=== PATIENT | male | born 1980 | race Caucasian/White ===

== ENCOUNTER → 2020-07-10 15:39 | Outpatient (CLI) | payer OTHER, SELFPAY ==
--- NOTE | 2020-07-10 15:53 | DI.MRI.S_ITS ---
PROCEDURE: MR WRIST LT WO CON INDICATIONS: DISPLACED FRACTURE OF MIDDLE THIRD OF NAVICULAR (S TECHNIQUE: Noncontrast coronal proton density fast spin echo and T2 fast spin echo with fat saturation; coronal 3-D gradient echo, axial T1 spin echo and T2 fast spin echo with fat saturation, sagittal T1 spin echo through the wrist. COMPARISON: [facility] [place], CR, XR WRIST 3+ VIEWS LEFT, 06/25/2020, 11:33. FINDINGS: Image quality: Degraded by motion artifact. Bones and cartilage: There is severe diffuse carpal joint degeneration, with subchondral sclerosis and cystic change. Chronic scaphoid fracture is present. No bridging ossification is seen. There is marrow edema present within the lunate without definite articular surface collapse. The exact etiology is unclear Carpal ligaments: The scapholunate and lunotriquetral ligaments are not well seen given degenerative changes although no definite widening of the scapholunate interval or lunotriquetral interval. In the absence of intra-articular contrast, the extrinsic carpal ligaments are not well identified. On sagittal images, the pisohamate ligament appears intact. Triangular fibrocartilage complex: The triangular fibrocartilage appears intact. The adjacent meniscal homolog appears normal in the absence of intra-articular contrast. The extensor carpi ulnaris tendon is normal in location and morphology. Tendons and soft tissues: The carpal tunnel structures appear normal, including the median nerve. The ulnar nerve appears normal within Guyon's canal. There is mild extensor carpi radialis longus and brevis tenosynovitis No soft tissue ganglion cysts. IMPRESSION: Chronic scaphoid fracture without bridging ossification. Diffuse carpal joint degeneration with subchondral sclerosis and cystic changes. Mild extensor carpi radialis longus and brevis tenosynovitis. Marrow edema within the lunate, however no definite articular surface collapse. This could be reactive to degenerative changes however consider short interval radiographic surveillance to exclude the possibility of early osteonecrosis. Dictated by: Marshal Sal M.D. on 07/10/2020 at 17:02 Approved by: Marshal Sal M.D. on 07/10/2020 at 17:10
== END ==
PROVIDERS: Referring Provider Orthopaedic Surgery; Visit Provider Orthopaedic Surgery
DX: S62.022K Displaced fracture of middle third of navicular [scaphoid] bone of left wrist, subsequent encounter for fracture with nonunion (principal); M65.832 Other synovitis and tenosynovitis, left forearm; M19.032 Primary osteoarthritis, left wrist; X58.XXXD Exposure to other specified factors, subsequent encounter
CPT/HCPCS: 73221

== ENCOUNTER → 2020-10-09 14:14 | Outpatient (CLI) | payer OTHER, SELFPAY ==
--- NOTE | 2020-10-09 14:16 | DI.RAD.S_ITS ---
PROCEDURE: XR LUMBAR SPINE MIN 4V INDICATIONS: sacral pain TECHNIQUE: 5 views of the lumbar spine were acquired, including bilateral oblique views. COMPARISON: None. FINDINGS: Bones: 5 nonrib-bearing vertebrae are present. There is normal bony alignment. No vertebral body compression fractures. No suspicious bony lesions. Soft tissues: Overlying bowel gas pattern is normal. No suspicious soft tissue calcifications. Oblique images: No pars defects. IMPRESSION: Mild degenerative disc height reduction at L5-S1. No evidence of subluxation or old compression fracture. A definite source of sacral pain is not seen. Sacral pain evaluation if needed his most accurately performed with dedicated sacral/sacrococcygeal MRI scanning. Dictated by: Ashwin Solis M.D. on 10/09/2020 at 15:15 Approved by: Ashwin Solis M.D. on 10/09/2020 at 15:16
== END ==
PROVIDERS: PCP Orthopaedic Surgery; Referring Provider Physical Medicine & Rehabilitation; Visit Provider Physical Medicine & Rehabilitation
DX: M54.16 Radiculopathy, lumbar region (principal); M53.3 Sacrococcygeal disorders, not elsewhere classified
CPT/HCPCS: 72110

== ENCOUNTER → 2020-12-13 08:22 | Outpatient (CLI) | payer OTHER, SELFPAY ==
--- NOTE | 2020-12-13 08:24 | DI.MRI.S_ITS ---
PROCEDURE: MR LUMBAR SPINE WO CON INDICATIONS: left L5 radiculopathy TECHNIQUE: Noncontrast sagittal T1 spin echo and T2 fast echo, sagittal STIR, axial T1 and T2 fast spin echo through the lumbar spine. In cases with scoliosis, additional coronal T2 fast spin echo may be performed. COMPARISON: [facility], CR, XR LUMBAR SPINE MIN 4V, 10/09/2020, 14:15. FINDINGS: Image quality: Excellent. Alignment and Curvature: There is grade 1 retrolisthesis of L5 on S1 measuring 4 mm. Bone Marrow: Marrow is of normal overall signal. No acute vertebral body compression fractures. Spinal Cord: Conus medullaris terminates at the T12-L1 level. Visualized cord demonstrates normal signal and size. Paraspinous Soft Tissues: No paravertebral masses. Discs: Moderate desiccation is present L5-S1. L1-L2: Minimal disc bulge without spinal stenosis or foraminal narrowing. Mild facet and ligamentum flavum hypertrophy are present. L2-L3: Minimal disc bulge without spinal stenosis or foraminal narrowing. Facet and ligamentum flavum hypertrophy are present. L3-L4: Minimal disc bulge without spinal stenosis. Questionable minimal left foraminal narrowing with facet and ligamentum flavum hypertrophy. L4-L5: Minimal to mild disc bulge with minimal canal narrowing. Minimal to mild bilateral foraminal narrowing, left greater than right with facet and ligamentum flavum hypertrophy. Minimal epidural lipomatosis. L5-S1: Disc bulge with superimposed extrusion in the posterior central/left paracentral location. There is significant compromise of the left lateral recess and to a lesser degree the right lateral recess. Moderate left foraminal narrowing. IMPRESSION: 1. Multilevel early degenerative changes. 2. Disc bulge with protrusion and subsequent extrusion at L5-S1 causing compromise of the exiting nerve roots as well as the lateral recesses bilaterally. Dictated by: Ayleen Saavedra M.D. on 12/14/2020 at 9:25 Approved by: Ayleen Saavedra M.D. on 12/14/2020 at 9:48
== END ==
PROVIDERS: PCP Orthopaedic Surgery; Referring Provider Physical Medicine & Rehabilitation; Visit Provider Physical Medicine & Rehabilitation
DX: M51.17 Intervertebral disc disorders with radiculopathy, lumbosacral region (principal); M47.26 Other spondylosis with radiculopathy, lumbar region
CPT/HCPCS: 72148

== ENCOUNTER → 2021-01-11 08:43 | Outpatient (CLI) | payer OTHER, SELFPAY ==
[2021-01-11 15:45] LABS: COVID19 -Nasal RAPID Negative (Negative)
== END ==
PROVIDERS: PCP Orthopaedic Surgery; Visit Provider Physical Medicine & Rehabilitation
DX: Z20.822 Contact with and (suspected) exposure to COVID-19 (principal)
CPT/HCPCS: 87635; C9803

== ENCOUNTER 2021-01-12 14:36 | Outpatient (CLI) | payer OTHER, SELFPAY ==
[2021-01-12] VITALS (9 sets, daily range): BP systolic 109–129; BP diastolic 63–73; PULSE 60–78; RESP 13–23; TEMP 36.6; O2SAT 96–100
--- NOTE | 2021-01-12 14:38 | DI.RAD.S_ITS ---
PROCEDURE: PAIN L/S TRANSFORAMINAL INJECT INDICATIONS: SPONDYLOSIS COMPARISON: [facility], MR, MR LUMBAR SPINE WO CON, 12/13/2020, 8:34. [facility], CR, XR LUMBAR SPINE MIN 4V, 10/09/2020, 14:15. FINDINGS: Fluoroscopic spot filming was performed to verify placement of a spinal needle at the L5-S1 level, as labeled on the films. Appropriate location of the needle tip was confirmed by injection of iodinated contrast. IMPRESSION: No significant intraprocedural abnormality. Dictated by: Reagan Wan M.D. on 01/12/2021 at 15:22 Approved by: Reagan Wan M.D. on 01/12/2021 at 15:23
[2021-01-12] MEDS: fentaNYL 100 MCG/2 ML INJ 50 MCG IV (15:24)
[2021-01-12] MEDS: MIDAZOLAM 5 MG/5 ML VIAL IV (15:29)
[2021-01-12] MEDS: DEXAMETHASONE 10 MG/ML VIAL 20 MG INJ (15:30)
[2021-01-12] MEDS: IOPAMIDOL 15 ML VIAL 3 ML INJ (15:30)
[2021-01-12] MEDS: BETAMETHASONE 30 MG/5 ML MDV 6 MG INJ (15:30)
[2021-01-12] MEDS: BUPIVACAINE 0.25% (PF) VIAL 2 ML INJ (15:30)
--- NOTE | 2021-01-12 15:43 | P.PCN_ITS ---
Date/Time/Diagnoses Date of procedure: 01/12/21 Time of procedure: 15:43 Pre-procedure diagnosis: 1. FORAMINAL STENOSIS WITH LE SYMPTOMS Post-procedure diagnosis: same Procedure Notes Procedure: 1. FLUOROSCOPICALLY GUIDED CONTRAST CONTROLLED TRANSFORAMINAL EPIDURAL STEROID INJECTION - Left L5/S1 Indications: Isai is referred by Dr. Parker for treatment of Foraminal Stenosis with Left LE Symptoms Physician: Jethro Pacheco Total Fluoroscopy time (seconds): 11 Total sedation minutes: 10 Complications: none Procedure in detail & Post-procedure care: FINDINGS Foraminal Nerve Root Compression secondary to disc disease and facet hypertrophy DESCRIPTION OF PROCEDURE Following review of allergy and review of potential side effects and complications, including, but not necessarily limited to, infection, allergic reaction, local tissue breakdown, stroke, temporary or permanent nerve injury, paralysis, and possible , the patient indicated that the patient understood and agreed to proceed. An informed consent document was signed by the patient, witnessed by a nurse, and placed in the patient's chart. Additionally, other treatment options including medications, modalities, and physical therapy were reviewed with the patient. After review of previous anaesthesic history and IV conscious sedation the patient was deemed safe to proceed with today?s procedure with IV conscious sedation as ASA class II designation. Safety time-out was performed to confirm patient ID, procedure to be performed and site of procedure. IV sedation was accomplished with a combination of 3mg of Versed and 50mcg of Fentanyl was administered by the RN after DO order, titrated to patient comfort during the course of the procedure while the patient remained responsive to all verbal commands In the prone position following sterile prep and drape of the lumbar region, the Left L5/S1 posterior neuroforamen was identified fluoroscopically. The skin was anesthetized via a 25-gauge 1.5-inch needle with 1% lidocaine solution. At this point, a 25-gauge 3.5-inch spinal needle was atraumatically introduced and advanced under fluoroscopic guidance through the posterior Left L5/S1 neurof oramen to approximately the anterior aspect of the canal. Depth was confirmed on lateral view. Following negative aspiration, injection of approximately 1.5 cc of Isovue 200 under live fluoroscopy in the AP view confirmed excellent flow along the nerve root, into the epidural space without vascular or intrathecal uptake observed Radiological data, including multiple fluoroscopic views of the lumbosacral spine, reveal a spinal needle at the Left L5/S1 posterior neuroforamen. Subsequent views show flow of contrast material flowing superiorly and inferiorly along the nerve root confirming epidural flow. Subsequently, a test dose of 1.5 cc of 1% lidocaine solution was administered and patient was observed for two minutes for signs or symptoms of complications, including abdominal pain, shortness of breath, bilateral upper or lower extremity weakness, nausea and vomiting, prior to steroid injection. At this point, a total of 3cc or 20mg of dexamethasone and 6mg of betamethasone was injected without incident. The procedure tolerated the procedure well without signs or symptoms of complications prior to transfer to the recovery area continued monitoring without incident. The patient was then transferred to the recovery area where they were observed for an appropriate time after the injection. The patient reported a VAS score of 7 prior to the procedure and a post-procedure VAS of 0. POST OP INSTRUCTIONS The patient was provided a Pain Log to continue to record their response to the target-specific procedure prior to follow-up visit with their referring physician. Additionally, specific post-injection care instructions and a contact number to our office were provided if concerns arise regarding possible complications associated with the procedure are suspected.
== END 2021-01-12 16:00 | disposition home or self-care (01) ==
LOC: RAD 14:38
PROVIDERS: PCP Orthopaedic Surgery; Referring Provider Physical Medicine & Rehabilitation; Visit Provider Physical Medicine & Rehabilitation
DX: M51.27 Other intervertebral disc displacement, lumbosacral region (principal); M48.07 Spinal stenosis, lumbosacral region
CPT/HCPCS: 64483; 99152; J0702; J1100; J2250; J3010

== ENCOUNTER → 2021-03-01 08:12 | Outpatient (CLI) | payer OTHER, SELFPAY ==
[2021-03-01 16:08] LABS: COVID19 -Nasal RAPID Negative (Negative)
== END ==
PROVIDERS: PCP Orthopaedic Surgery; Visit Provider Physical Medicine & Rehabilitation
DX: Z20.822 Contact with and (suspected) exposure to COVID-19 (principal)
CPT/HCPCS: 87635; C9803

== ENCOUNTER 2021-03-02 08:14 | Outpatient (CLI) | payer OTHER, SELFPAY ==
[2021-03-02] VITALS (8 sets, daily range): BP systolic 99–122; BP diastolic 52–82; PULSE 55–65; RESP 10–18; TEMP 36.8; O2SAT 98–100
--- NOTE | 2021-03-02 08:15 | DI.RAD.S_ITS ---
PROCEDURE: PAIN L INTERLAMINAR/CAUDAL INJ INDICATIONS: SPONDYLOSIS COMPARISON: None. FINDINGS: Fluoroscopic spot filming was performed to verify placement of spinal needles at the L5-S1 level(s), as labeled on the films. Appropriate location(s) of the needle tip(s) was confirmed by injection of iodinated contrast. IMPRESSION: Fluoro guidance was provided intraoperatively for L5-S1 translaminar epidural steroid injection performed by the ordering physician. Dictated by: Chandana Acosta M.D. on 03/02/2021 at 10:41 Approved by: Chandana Acosta M.D. on 03/02/2021 at 10:42
[2021-03-02] MEDS: MIDAZOLAM 5 MG/5 ML VIAL IV (08:58)
[2021-03-02] MEDS: fentaNYL 100 MCG/2 ML INJ 50 MCG IV (08:58)
[2021-03-02] MEDS: BUPIVACAINE 0.25% (PF) VIAL 2 ML INJ (09:03)
[2021-03-02] MEDS: IOPAMIDOL 15 ML VIAL 3 ML INJ (09:03)
[2021-03-02] MEDS: BETAMETHASONE 30 MG/5 ML MDV 6 MG INJ (09:03)
[2021-03-02] MEDS: DEXAMETHASONE 10 MG/ML VIAL 20 MG INJ (09:04)
--- NOTE | 2021-03-02 09:08 | PM.PROC.IR.1 ---
Date/Time/Diagnoses Date of procedure: 03/02/21 Time of procedure: 09:08 Pre-procedure diagnosis: 1. HNP WITH RADICULAR FEATURES, 2. MULTILEVEL CENTRAL STENOSIS, Post-procedure diagnosis: same Procedure Notes Procedure: 1. FLUOROSCOPICALLY GUIDED CONTRAST CONTROLLED INTERLAMINAR EPIDURAL STEROID INJECTION - L5/S1 Indications: Isai is referred by Dr. Parker for treatment of Bilateral Foraminal Stenosis L>R LE symptoms. Physician: Jethro Pacheco Total Fluoroscopy time (seconds): 4 Total sedation minutes: 6 Complications: none Procedure in detail & Post-procedure care: FINDINGS Multilevel Central Spinal Stenosis with Nerve Root Compression DESCRIPTION OF PROCEDURE Fluoroscopically guided, contrast-controlled L5/S1 translaminar epidural steroid injection. Following review of allergy and review of potential side effects and complications, including, but not necessarily limited to, infection, allergic reaction, local tissue breakdown, temporary as well as permanent nerve injury, paralysis, stroke and possible , the patient indicated that the patient understood and agreed to proceed. An informed consent document was signed by the patient, witnessed by a nurse, and placed in the patient's chart. Additionally, other treatment options including modalities, medications, and physical therapy were reviewed with the patient. After review of previous anaesthesic history and IV conscious sedation the patient was deemed safe to proceed with today?s procedure with IV conscious sedation as ASA class II designation. Safety time-out was performed to confirm patient ID, procedure to be performed and site of procedure. IV sedation was accomplished with a combination of 2mg of Versed and 50mcg of Fentanyl administered by the RN after DO order, titrated to patient comfort during the course of the procedure while the patient remained responsive to all verbal commands. In the prone position, following sterile prep and drape of the lumbar region, the L5/S1 translaminar space was identified fluoroscopically. The skin was anesthetized via a 25-gauge, 1.5-inch needle with 1% lidocaine solution. At this point, a 22-gauge short bevel spinal needle was atraumatically introduced and advanced under fluoroscopic guidance into the region of the L5/S1 translaminar space. Depth was confirmed on lateral view. Radiological data, including multiple fluoroscopic views of the lumbar spine, reveal a spinal needle at the L5/S1 translaminar space. Lateral views then show placement of the needle in the epidural space. Subsequent views show contrast material flowing superiorly and inferiorly in the epidural space. No vascular or intrathecal uptake is observed. At this point, using loss of resistance technique with saline and air, the epidural space was entered. This was confirmed following negative aspiration with injection of approximately 1.5cc of Isovue 200, showing excellent epidural flow without vascular or intrathecal uptake. At this point, 1 cc of 1% lidocaine solution combined with 3cc or 20mg of dexamethasone and 6mg of betamethasone was injected without incident. The patent tolerated the procedure without signs of symptoms of complications prior to transfer to the recovery area for further monitoring. The patient was then transferred to the recovery area where they were observed for an appropriate period of time after the injection. The patient reported a VAS score of 6 prior to the procedure and a post-procedure VAS of 0. POST OP INSTRUCTIONS The patient was provided a Pain Log to continue to record their response to the target-specific procedure prior to follow-up visit with their referring physician. Additionally, specific post-injection care instructions and a contact number to our office were provided if concerns arise regarding possible complications associated with the procedure are suspected.
== END 2021-03-02 09:37 | disposition home or self-care (01) ==
LOC: RAD 08:15
PROVIDERS: PCP Orthopaedic Surgery; Referring Provider Physical Medicine & Rehabilitation; Visit Provider Physical Medicine & Rehabilitation
DX: M51.17 Intervertebral disc disorders with radiculopathy, lumbosacral region (principal); M48.07 Spinal stenosis, lumbosacral region
CPT/HCPCS: 62323; J0702; J1100; J2250; J3010